=== PATIENT | female | born 1980 | race Caucasian/White ===

== ENCOUNTER → 2022-10-15 | Outpatient (CLI) | payer OTHER ==
--- NOTE | 2022-10-16 18:33 | MM ---
Reason for Exam: Screening (asymptomatic). Baseline mammogram. Patient History: Menarche at age 10. First Full-Term at age 21. Hysterectomy at age 38. Patient has history of breast feeding. Sister (Mattie) had breast cancer, age 48. Risk Values: Cynthia 5 year model risk: 1.4%. NCI Lifetime model risk: 19.6%. Prior Study Comparison: Patient's first Mammogram. Tissue Density: The breast tissue is extremely dense which could obscure a lesion on mammography. Findings: Analyzed By CAD. Pattern appears symmetrical. There is a group of fine calcifications of 12:00 middle position left breast. Additional evaluation with magnification views are recommended. Right breast appears unremarkable. Overall Assessment: Incomplete: need additional imaging evaluation, BI-RAD 0 Management: Diagnostic Mammogram of the left breast. A negative mammogram report should not preclude additional follow up of suspicious palpable abnormalities. Patient should continue monthly self breast exam. A clinical breast exam by your physician is recommended on an annual basis and results should be correlated with mammographic findings. Electronically signed and approved by: Milton Samano D.O. Radiologis
== END | disposition home or self-care (01) ==
LOC: RADMAMWWP 10:31
PROVIDERS: ATTEND Obstetrics & Gynecology
DX: Z12.31 Encounter for screening mammogram for malignant neoplasm of breast (principal); Z80.3 Family history of malignant neoplasm of breast
CPT/HCPCS: 77063; 77067

== ENCOUNTER → 2022-10-21 | Outpatient (CLI) | payer OTHER ==
--- NOTE | 2022-10-21 09:05 | MM ---
Reason for Exam: Additional evaluation requested from abnormal screening. Last screening mammogram was performed less than 1 month ago. Patient History: Menarche at age 10. First Full-Term at age 21. Hysterectomy at age 38. Patient has history of breast feeding. Sister (Mattie) had breast cancer, age 48. Risk Values: Cynthia 5 year model risk: 1.4%. NCI Lifetime model risk: 19.6%. Prior Study Comparison: 10/15/2022 Bilateral MG 3D screening mammo w/cad, [facility]. Tissue Density: Left: The breast tissue is extremely dense which could obscure a lesion on mammography. Findings: Analyzed By CAD. Some faint calcifications are grouped in the anterior left breast on the craniocaudal projection 2.5 cm from the nipple. Small diffuse scattered calcifications are more posterior on the medial lateral view. These do not appear to correlate based on depth from the nipple. Recommend attempting stereotactic core biopsy more anterior calcifications. Overall Assessment: Suspicious, BI-RAD 4 Management: Stereotactic Core Biopsy of the left breast. A negative mammogram report should not preclude additional follow up of suspicious palpable abnormalities. Patient should continue monthly self breast exam. A clinical breast exam by your physician is recommended on an annual basis and results should be correlated with mammographic findings. Electronically signed and approved by: Milton Samano D.O. Radiologis
== END | disposition home or self-care (01) ==
LOC: RADMAMWWP 08:29
PROVIDERS: ATTEND Obstetrics & Gynecology
DX: R92.1 Mammographic calcification found on diagnostic imaging of breast (principal); R92.2 Inconclusive mammogram; Z80.3 Family history of malignant neoplasm of breast
CPT/HCPCS: 77065; G0279; 77061

== ENCOUNTER → 2022-11-11 | Day surgery (SDC) | payer OTHER ==
--- NOTE | 2022-11-14 08:48 | MM ---
Risk Values: Cynthia 5 year model risk: 1.4%. NCI Lifetime model risk: 19.6%. Prior Study Comparison: 10/15/2022 Bilateral MG 3D screening mammo w/cad, [facility]. 10/21/2022 Left MG 3D work up w/cad , [facility]. Pathology Description: Location: lower inner quadrant. Approach: CC FB Needle Type: Eviva Cores: 7 Skin Nicks: 1 Gauge: 9 The procedure of stereotactic guided core biopsy was explained to the patient. Benefits, alternatives, and risks were discussed. An informed consent was then obtained. The shortness pathway for biopsy was chosen. Shortness pathway was inferior approach. I performed the procedure. Lidocaine was utilized for local anesthetic. A vacuum assisted biopsy gun was used to obtain multiple core samples. The patient tolerated the procedure well without any immediate complication. The patient was kept in the radiology department for short stay after the procedure and then discharged home in stable condition. Targeted calcifications are identified in specimen mammogram. Post biopsy mammogram shows the clip to appear in satisfactory position relative to the targeted area of concern on the preprocedure images. Impression: SUCCESSFUL, UNCOMPLICATED STEREOTACTIC GUIDED CORE BIOPSY OF AREA OF CONCERN IN THE LEFT BREAST. Pathology Results: Result: Benign, Fibrocystic change. LEFT BREAST, STEREOTACTIC CORE BIOPSY: Fibrocystic change with columnar cell change, apocrine metaplasia, focal microcalcification and stromal fibrosis (see note). Current case negative for diagnostic in situ or invasive carcinoma. Focal mild to moderate usual ductal hyperplasia seen. Notes Areas of somewhat sclerotic and hypocellular fibrosis are seen. 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 Another differential diagnosis consideration is a fibrotic and sclerotic scar. Clinical correlation with imaging studies is suggested, as deemed clinically appropriate. Overall Assessment: Benign Management: Diagnostic Mammogram of the left breast in 6 months. Electronically signed and approved by: Eduardo Beckham D.O.
== END ==
LOC: RADMAMWWP 10:04
PROVIDERS: ATTEND Radiology Body Imaging
DX: N60.12 Diffuse cystic mastopathy of left breast (principal); N60.82 Other benign mammary dysplasias of left breast
CPT/HCPCS: 88305; 19081; A4648

== ENCOUNTER → 2023-09-30 | Outpatient (CLI) | payer OTHER ==
--- NOTE | 2023-10-01 09:04 | MM ---
Reason for Exam: Follow-up at short interval from prior study. Last screening mammogram was performed 11 month(s) ago. Patient History: Menarche at age 10. First Full-Term at age 21. Hysterectomy at age 38. Patient has history of breast feeding. 11/11/2022, Benign MG stereo VAD BX LT on the left side. Sister (Mattie) had breast cancer, age 48. Risk Values: Cynthia 5 year model risk: 2.4%. NCI Lifetime model risk: 23.2%. Tissue Density: The breasts are extremely dense, which lowers the sensitivity of mammography. Findings: Analyzed By CAD. Stable benign calcifications. No mass or distortion. Microclip marker from prior biopsy left breast. Overall Assessment: Benign, BI-RAD 2 Management: Screening Mammogram of both breasts in 1 year. . Results were given to the patient verbally at the time of exam. Patient should continue monthly self-breast exams. A clinical breast exam by your physician is recommended on an annual basis. This exam should not preclude additional follow-up of suspicious palpable abnormalities. Note on Cynthia scores and lifetime risk: 1. A Cynthia score greater than 3% is considered moderate risk. If this is the case, consider specialist referral to assess eligibility for a risk reducing agent. 2. If overall lifetime risk for the development of breast cancer is 20% or higher, the patient may qualify for future screening with alternating mammogram and breast MRI. Electronically signed and approved by: Everette Lomeli M.D. Radiologis
== END | disposition home or self-care (01) ==
LOC: RADMAMWWP 08:04
PROVIDERS: ATTEND Family Medicine
DX: R92.343 Mammographic extreme density, bilateral breasts (principal); Z80.3 Family history of malignant neoplasm of breast
CPT/HCPCS: 77066; G0279; 77062